=== PATIENT | female | born 1985 | race American Indian/Alaskan Native ===

== ENCOUNTER 2018-06-14 18:19 | Inpatient (IN) | payer MEDICAID ==
[2018-06-14] MEDS ORDERED: PITOCin/NS 20 UNIT/1000ML DRIP 20,000 MILLIUNITS/1,000 ML BAG IV ONE (18:43)
[2018-06-14] MEDS ORDERED: PITOCin/NS 20 UNIT/1000ML DRIP 20 UNITS/1,000 ML BAG IV SCH ×2 (19:00→23:26)
[2018-06-14] MEDS ORDERED: LACTATED RINGERS 1,000 ML IV SCH (19:00)
[2018-06-14] MEDS ORDERED: XYLOCAINE 2% INFILTRATI ONE (20:00)
--- NOTE | 2018-06-14 20:30 | History and Physical Report ---
History of Present Illness Date of examination: 06/14/18 Date of admission: 06/14/18 18:37 Chief complaint: delivered within 5 minutes of arrive to hospital History of present illness: 32y/o arrived and delivered within 5 minutes of arrival receives care at [facility] in [place] Pt denies any problems with - no MFM, GDM, HTN Reports EDC 08/01/18 Past History Past Medical History: no pertinent history Past Surgical History: no surgical history [employer]IVE History: denies: chlamydia, gonorrhea, hepatitis B, hepatitis C, HIV, syphilis Social history: no significant social history, lives with family - Obstetrical History Expected Date of Delivery: 08/01/18 Actual Gestation: 33 Week(s) 1 Day(s) : 1 Para: 1 (delivery 06/14/18) Hx # Term Pregnancies: 0 Number of Pregnancies: 1 Spontaneous Abortions: 0 Induced : 0 Number of Living Children: 1 Medications and Allergies Allergies Allergy/AdvReac Type Severity Reaction Status Date / Time No Known Allergies Allergy Unverified 06/14/18 18:54 Home Medications Medication Instructions Recorded Confirmed Last Taken Type Pnv No.121/Iron/Folic Acid 1 tab PO QDAY 06/14/18 06/14/18 06/13/18 22:00 History [ Multivitamin Tablet] Valacyclovir HCl [Valtrex] 1,000 mg PO QDAY 06/14/18 06/14/18 1 Day Ago History ~06/13/18 Active Meds: Active Medications Lactated Ringer's (Lactated Ringers) 1,000 mls @ 125 mls/hr IV DIRECT JENNIFER Oxytocin/Sodium Chloride (Pitocin/Ns 20 Unit/1000ml Drip) 20 units in 1,000 mls @ 125 mls/hr IV DIRECT JENNIFER Last Admin: 06/14/18 18:45 Dose: 125 mls/hr Review of Systems All systems: negative - Vital Signs Vital signs: Vital Signs Temp Resp 96.5 F L 18 06/14/18 18:30 06/14/18 18:30 Temp Pulse Resp BP Pulse Ox 96.5 F L 81 18 123/72 06/14/18 18:30 06/14/18 19:56 06/14/18 18:30 06/14/18 19:56 - Physical Exam Breasts: Positive: normal Cardiovascular: Regular rate Lungs: Positive: Clear to auscultation, Normal air movement Abdomen: Positive: normal appearance, soft Genitourinary (Female): Positive: normal external genitalia, normal perenium Vulva: both: normal Vagina: Positive: normal moisture (lochia scant) Uterus: Positive: normal size (firm and @ U) Anus/Rectum: Positive: normal perianal skin Extremities: Positive: normal Deep Tendon Reflex Grade: Normal +2 Results All other labs normal. Assessment and Plan 32y/o now del immediately after arriving to labor and delivery. Admission orders in EMR. Will attempt to get records. - Patient Problems (1) delivery, delivered Current Visit: Yes Status: Acute (2) 33 weeks gestation of Current Visit: Yes Status: Acute
--- NOTE | 2018-06-14 20:37 | Procedure Note ---
OB Delivery Note - Delivery Date of Delivery: 06/14/18 Retail Merchandiser: GENA GOMEZ (pt delivered with nursing staff and EMS) Estimated blood loss: 200cc - Vaginal Delivery presentation: vertex Intrapartum events: labor-<37 weeks, PROM->1hr before delivery, precipitous labor- <3hr Delivery induction: none Delivery monitor: none Route of delivery: Delivery placenta: spontaneous Episiotomy: none Delivery laceration: none Anesthesia: none Delivery comments: pt delivered with nursing staff and EMS (JAIMEE Pennington standing by) placenta del spontaneously - Infant A at 1 minute: 8 at 5 minutes: 9 Gender: Male (4#11)
[2018-06-14] MEDS ORDERED: PHENERGAN PO PRN (23:26)
[2018-06-14] MEDS ORDERED: BENADRYL PO PRN (23:26)
[2018-06-14] MEDS ORDERED: ZOFRAN IV PRN (23:26)
[2018-06-14] MEDS ORDERED: MILK OF MAGNESIA PO PRN (23:26)
[2018-06-14] MEDS ORDERED: DERMOPLAST TP PRN (23:26)
[2018-06-14] MEDS ORDERED: TYLENOL PO PRN (23:26)
[2018-06-14] MEDS ORDERED: DULCOLAX PR PRN (23:26)
[2018-06-14] MEDS ORDERED: TUCKS PAD TP PRN (23:26)
[2018-06-14] MEDS ORDERED: SODIUM CHLORIDE FLUSH SYRINGE 10 ML IV PRN (23:26)
[2018-06-14] MEDS ORDERED: LANSINOH TP PRN (23:26)
[2018-06-14 23:32] LABS: Hematocrit 35.8 % (30.3-42.9); Hemoglobin 11.6 gm/dl (10.1-14.3); Mean Corpuscular HGB Conc 32 % (30-34); Mean Corpuscular Hemoglobin 27 pg (28-32); Mean Corpuscular Volume 83 fl (79-97); Platelet Count 248 K/mm3 (140-440); Red Blood Count 4.33 M/mm3 (3.65-5.03); Red Cell Distribution Width 14.9 % (13.2-15.2)
[2018-06-14] MEDS: COLACE PO SCH (23:45)
[2018-06-14] MEDS: FEOSOL PO SCH (23:45)
[2018-06-14] MEDS: MOTRIN PO SCH (23:52)
[2018-06-15 00:06] LABS: Hepatitis C Virus Antibody Non-Reactive (NonReactive)
[2018-06-15 00:33] LABS: Amphetamine Screen,Urine PRESUMPTIVE NEGATIVE; Benzodiazepines Screen,Urine PRESUMPTIVE NEGATIVE; Cannabinoid Screen,Urine PRESUMPTIVE NEGATIVE; Cocaine Screen,Urine PRESUMPTIVE NEGATIVE; Methadone Screen,Urine PRESUMPTIVE NEGATIVE; Opiate Screen,Urine PRESUMPTIVE NEGATIVE
[2018-06-15 03:54] LABS: Rubella IgG Antibody Immune (Immune)
[2018-06-15 08:35] LABS: Hematocrit 33.8 % (30.3-42.9); Hemoglobin 11.1 gm/dl (10.1-14.3)
[2018-06-15] MEDS ORDERED: PRENATAL VITAMIN PO SCH (10:00)
[2018-06-15] MEDS: MOTRIN PO SCH ×2 (12:00→19:42)
--- NOTE | 2018-06-15 12:07 | Progress Note ---
Assessment and Plan patient resting, no complaints this morning. VSSAF, H&H 11.1/33.8, lochia scant , fundus firm. Encouraged pumping q3h. Continue pathway, anticipate d /c home tomorrow. - Patient Problems (1) delivery, delivered Current Visit: Yes Status: Acute Subjective - Subjective Date of service: 06/15/18 Principal diagnosis: day #1 s/p vaginal delivery Interval history: 32y/o arrived and delivered within 5 minutes of arrival receives care at [facility] Pt denies any problems with - no MFM, GDM, HTN Reports EDC 08/01/18 Patient reports: appetite normal, voiding normally, pain well controlled, ambulating normally, no dizzy ambulation, no nauseated : in NICU (pumping breast milk) Objective - Vital Signs Latest vital signs: Vital Signs Temp Pulse Resp BP BP Pulse Ox 06/15/18 04:00 98.7 F 77 18 102/76 06/15/18 00:15 98.7 F 64 18 104/78 06/14/18 21:00 98.7 F 82 16 122/65 06/14/18 19:56 97.4 F L 81 18 123/72 123/72 98 06/14/18 19:41 97.1 F L 81 18 121/70 121/70 06/14/18 19:26 97.0 F L 85 18 125/69 125/69 06/14/18 19:11 96 H 125/63 06/14/18 18:56 84 131/63 06/14/18 18:30 96.5 F L 18 Intake and Output 06/14/18 06/15/18 06/15/18 23:59 07:59 15:59 Intake Total 500 700 Output Total 600 1400 Balance -100 -700 Intake: Oral 200 400 Intake, Free Water 300 300 Output: Urine 600 1400 Void 600 1400 Other: Total, Intake Amount 200 200 Total, Output Amount 600 800 # Voids Void 1 1 Weight 90.718 kg Estimated Blood Loss 200 - Exam Breasts: Present: normal Cardiovascular: Present: Regular rate Lungs: Present: Clear to auscultation, Normal air movement Abdomen: Present: normal appearance, soft Vulva: both: normal Uterus: Present: normal, firm, fundal height at umbilicus Extremities: Present: normal - Labs Labs: Abnormal lab results 06/14/18 Range/Units 23:22 MCH 27 L (28-32) pg
[2018-06-15] MEDS: COLACE PO SCH (22:33)
[2018-06-15] MEDS: FEOSOL PO SCH (22:34)
--- NOTE | 2018-06-16 05:54 | Discharge Summary ---
Providers - Providers Date of Admission: 06/14/18 18:37 Date of discharge: 06/16/18 (pt agrees with d/c) Attending physician: PAMELA SILVESTRE 06/14/18 23:26 Consult to Biologist [CONS] Routine Reason For Exam: assistance with , SNS Primary care physician: DENTAL ASSISTING INSTRUCTOR Hospitalization Reason for admission: active labor Delivery: Episiotomy: none Laceration: none Incision: normal Other procedures: none complications: none Discharge diagnosis: IUP at term delivered [place] baby: male Hospital course: uncomplicated vaginal delivery Pt will f/u with her OB of record for PP care Pt resting No c/o voiced VSS FF below the umb Lochia small perineum intact H&H stable Asymptomatic Doing well s/p vag delivery P: d/c today with instructions. Condition at discharge: Good Disposition: DC-01 TO HOME OR SELFCARE - Discharge Diagnoses (1) delivery, delivered Status: Acute Comment: F/U 6 weeks PP care Plan - Provider Discharge Summary Activity: routine, no sex for 6 weeks, no heavy lifting 4 weeks, no strenuous exercise Diet: routine Instructions: routine Additional instructions: [] Smoking cessation referral if applicable(refer to patient education folder for contact #) [] Refer to [facility] Booklet Call your doctor immediately for: * Fever > 100.5 * Heavy vaginal bleeding ( >1 pad per hour) * Severe persistent headache * Shortness of breath * Reddened, hot, painful area to leg or breast * Drainage or odor from incision. * Keep incision clean and dry at all times and follow doctor's instructions regarding bathing/showering - Follow up plan Follow up: PRIMARY CARE, [Primary Care Provider] - 7 Days GENA GOMEZ CNM [Advanced Practice Nurse] - 6 Weeks (Congratulations! Please call your OB office to schedule your visit in 6 weeks. Motrin for any cramping you may experience.)
[2018-06-16] MEDS ORDERED: BOOSTRIX IM ONE (06:00)
[2018-06-16] MEDS: FEOSOL PO SCH (12:16)
[2018-06-16] MEDS: COLACE PO SCH (12:16)
[2018-06-16] MEDS: MOTRIN PO SCH ×2 (12:18)
[2018-06-16 16:19] VITALS: BP 117/71
== END 2018-06-16 15:40 | disposition home or self-care (01) | DRG 775 ==
LOC: TRG 18:19 → LD 18:37 → OB 22:01
PROVIDERS: ADMIT Obstetrics & Gynecology; ATTEND Obstetrics & Gynecology
PROC: 10E0XZZ Delivery of Products of Conception, External Approach (ICD-10-PCS; principal; 2018-06-14)
DX: O60.14X0 Preterm labor third trimester with preterm delivery third trimester, not applicable or unspecified (principal); O62.3 Precipitate labor; O42.913 Preterm premature rupture of membranes, unspecified as to length of time between rupture and onset of labor, third trimester; Z3A.33 33 weeks gestation of pregnancy; Z37.0 Single live birth
CPT/HCPCS: 36415; 80307; 85014; 85018; 85027; 85660; 86592; 86706; 86762; 86803; 86850; 86900; 86901; 87806; J2590